=== PATIENT | female | born 2000 | race Caucasian/White ===

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

== ENCOUNTER 2023-05-14 20:24 | Outpatient (CLI) | payer SELFPAY | END 2023-05-14 20:25 | disposition critical access hospital (66) | LOC: EMS 20:24 | DX: T75.1XXA Unspecified effects of drowning and nonfatal submersion, initial encounter (principal); R41.82 Altered mental status, unspecified; F10.90 Alcohol use, unspecified, uncomplicated; F14.90 Cocaine use, unspecified, uncomplicated | CPT/HCPCS: A0425; A0429 ==

== ENCOUNTER 2023-05-14 21:03 | Emergency (ER) | payer SELFPAY ==
[2023-05-14] MEDS ORDERED: LORazepam 2 MG/ML VIAL IVP STA ×2 (21:13→21:43)
[2023-05-14 21:28] LABS: MUDS CUTOFF CONCENTRATIONS CUTOFF CONC BELOW:
[2023-05-14 21:33] LABS: BASOPHILS % (AUTO) 0.4 %; EOSINOPHILS # (AUTO) 0.1 10^3/uL (0.0-0.7); EOSINOPHILS % (AUTO) 1.1 %; HCT - HEMATOCRIT 42.3 % (37.0-47.0); HGB - HEMOGLOBIN 13.8 g/dL (12.0-16.0); LYMPHOCYTES # (AUTO) 2.5 10^3/uL (1.5-3.5); LYMPHOCYTES % (AUTO) 23.1 %; MEAN CORPUSCULAR HEMOGLOBIN 31.9 pg (27.0-31.0); MEAN CORPUSCULAR HGB CONC 32.6 g/dL (32.0-36.0); MEAN CORPUSCULAR VOLUME 97.7 fL (81.0-99.0); MEAN PLATELET VOLUME 9.4 fL (7.9-10.8); MONOCYTES # (AUTO) 0.9 10^3/uL (0.0-1.0); MONOCYTES % (AUTO) 8.4 %; NEUTROPHILS # (AUTO) 7.1 10^3/uL (1.5-6.6); NEUTROPHILS % (AUTO) 66.7 %; PLT - PLATELET COUNT 238 10^3/uL (130-450); RED BLOOD COUNT 4.33 10^6/uL (4.20-5.40); RED CELL DISTRIBUTION WIDTH 12.6 % (12.0-15.0); WHITE BLOOD COUNT 10.6 x10^3/uL (4.8-10.8)
[2023-05-14 21:41] LABS: AMPHETAMINE SCREEN,URINE NEGATIVE (NEGATIVE); BARBITURATE SCREEN,UR NEGATIVE (NEGATIVE); BENZODIAZEPINES SCREEN, URINE NEGATIVE (NEGATIVE); COCAINE SCREEN URINE POSITIVE (NEGATIVE); METHADONE SCREEN, URINE NEGATIVE (NEGATIVE); METHAMPHETAMINES SCREEN, URINE NEGATIVE (NEGATIVE); OPIATE SCREEN, URINE NEGATIVE (NEGATIVE); OXYCODONE SCREEN, URINE NEGATIVE (NEGATIVE); PROPOXYPHENE SCREEN, URINE NEGATIVE (NEGATIVE); THC CANNABINOID SCREEN, URINE NEGATIVE (NEGATIVE); TRICYCLIC ANTIDEPRESSANT,URINE NEGATIVE (NEGATIVE)
[2023-05-14] MEDS ORDERED: SODIUM CHLORIDE 0.9% 1,000 ML IV STA (21:43)
[2023-05-14 21:54] LABS: ALBUMIN 4.2 g/dL (3.2-5.5); ALBUMIN/GLOBULIN RATIO 1.5 (1.0-2.2); BILIRUBIN,TOTAL 0.3 mg/dL (0.2-1.0); CALCIUM 8.6 mg/dL (8.5-10.3); CREATININE 0.6 mg/dL (0.6-1.3); ETOH - ETHANOL 330.6 mg/dL; POTASSIUM 3.9 mmol/L (3.5-4.5)
[2023-05-14 21:58] LABS: HCG,QUALITATIVE BLOOD NEGATIVE
[2023-05-15] MEDS ORDERED: SODIUM CHLORIDE 0.9% 1,000 ML IV STA (01:25)
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
[2023-05-15 08:04] VITALS: BP 106/56
== END 2023-05-15 08:15 | disposition home or self-care (01) ==
LOC: EDUNIT# → ED 21:03
DX: F10.129 Alcohol abuse with intoxication, unspecified (principal); F14.10 Cocaine abuse, uncomplicated; Y90.8 Blood alcohol level of 240 mg/100 ml or more
CPT/HCPCS: 36415; 80053; 80306; 80320; 83690; 84703; 85025; 96361; 96374; 99284; J2060

== ENCOUNTER 2023-09-21 08:00 | Outpatient (CLI) | payer BC ==
[2023-09-21 17:34] LABS: BILIRUBIN,URINE NEGATIVE (NEGATIVE); GLUCOSE, URINE (UA) NEGATIVE (NEGATIVE); KETONES,URINE (UA) NEGATIVE (NEGATIVE); LEUKOCYTE ESTERASE, URINE NEGATIVE (NEGATIVE); NITRITE,URINE NEGATIVE (NEGATIVE); OCCULT BLOOD,URINE NEGATIVE (NEGATIVE); PROTEIN,URINE NEGATIVE (NEGATIVE); UROBILINOGEN,URINE 0.2 (NORMAL) E.U./dL (NORMAL)
[2023-09-21 17:42] LABS: CLARITY,URINE CLEAR (CLEAR)
[2023-09-21 18:28] LABS: BACTERIA,URINE Rare /HPF (None Seen); RBC,URINE 0-5 /HPF (0-5); SQUAMOUS EPITHELIAL CELL,UR FEW Squamous (<= Few); WBC,URINE 0-3 /HPF (0-5)
== END 2023-09-21 23:59 | disposition home or self-care (01) ==
LOC: LAB.WC 08:00
PROVIDERS: ATTEND Nurse Practitioner
DX: Z34.00 Encounter for supervision of normal first pregnancy, unspecified trimester (principal)
CPT/HCPCS: 81001; 87086

== ENCOUNTER 2023-10-18 08:00 | Outpatient (CLI) | payer BC ==
[2023-10-19 15:08] LABS: CHLAMYDIA TRACHOMATIS DNA NEGATIVE (NEGATIVE); NEISSERIA GONORRHOEAE DNA NEGATIVE (NEGATIVE); TRICHOMONAS VAGINALIS DNA NEGATIVE (NEGATIVE)
== END 2023-10-18 08:01 | disposition home or self-care (01) ==
LOC: LAB.WC 08:00
PROVIDERS: ATTEND Obstetrics & Gynecology
DX: Z11.3 Encounter for screening for infections with a predominantly sexual mode of transmission (principal)
CPT/HCPCS: 87491; 87591; 87661

== ENCOUNTER 2023-11-06 12:44 | Outpatient (CLI) | payer BC ==
--- NOTE | 2023-11-06 17:00 | Ultrasound Report ---
PROCEDURE: OB 1st Trimester INDICATIONS: POSITIVE TEST OUTSIDE/PRIOR DATING DATA: Last menstrual period (LMP): 07/18/2023. LMP-based estimated date of delivery (JALYN): 04/23/2024. First dating scan (date and location): 11/06/2023. Estimated date of delivery (JALYN) from first dating scan: 05/20/2024. TECHNIQUE: Real-time scanning was performed of the fetus and maternal pelvic organs with image docum entation. COMPARISON: None FINDINGS: Single intrauterine gestational sac contains a pole and yolk sac. Embryo: [place]-rump length measures 6.3 cm corresponding to a 12 week 4 day gestation. Heart rate: 160 bpm. Other: No perigestational fluid collection. Measurement variability in dating: +/- 4 weeks by LMP, +/- 7 days by mean sac diameter (use before 6 weeks gestation if crown-rump length not able to be measured), +/- 5 days by crown-rump length (6-12 weeks gestation) Maternal organs: 2.3 cm corpus luteum cyst noted in the right IMPRESSION: Single live intrauterine consistent with 12 week 4 day gestation gestation. Reviewed by: Nawaf Galo MD on 11/06/2023 3:59 PM ADONIS Approved by: Nawaf Galo MD on 11/06/2023 3:59 PM [place] Station ID: [id number]
== END 2023-11-06 12:45 | disposition home or self-care (01) ==
LOC: DI 12:44
PROVIDERS: ATTEND Nurse Practitioner
DX: Z34.01 Encounter for supervision of normal first pregnancy, first trimester (principal)

== ENCOUNTER 2023-11-15 13:43 | Outpatient (CLI) | payer BC ==
[2023-11-15 14:00] LABS: BASOPHILS % (AUTO) 0.2 %; EOSINOPHILS # (AUTO) 0.1 10^3/uL (0.0-0.7); EOSINOPHILS % (AUTO) 0.9 %; HCT - HEMATOCRIT 33.7 % (37.0-47.0); HGB - HEMOGLOBIN 11.1 g/dL (12.0-16.0); LYMPHOCYTES # (AUTO) 1.9 10^3/uL (1.5-3.5); LYMPHOCYTES % (AUTO) 15.4 %; MEAN CORPUSCULAR HEMOGLOBIN 30.3 pg (27.0-31.0); MEAN CORPUSCULAR HGB CONC 32.9 g/dL (32.0-36.0); MEAN CORPUSCULAR VOLUME 92.1 fL (81.0-99.0); MEAN PLATELET VOLUME 9.6 fL (7.9-10.8); MONOCYTES # (AUTO) 0.6 10^3/uL (0.0-1.0); MONOCYTES % (AUTO) 4.8 %; NEUTROPHILS # (AUTO) 9.9 10^3/uL (1.5-6.6); NEUTROPHILS % (AUTO) 78.2 %; PLT - PLATELET COUNT 282 10^3/uL (130-450); RED BLOOD COUNT 3.66 10^6/uL (4.20-5.40); RED CELL DISTRIBUTION WIDTH 11.9 % (12.0-15.0); WHITE BLOOD COUNT 12.6 x10^3/uL (4.8-10.8)
[2023-11-16 06:12] LABS: RPR Non Reactive (Non Reactive)
[2023-11-16 07:10] LABS: HBsAG SCREEN Negative (Negative)
[2023-11-16 08:10] LABS: HCV AB Non Reactive (Non Reactive)
[2023-11-16 10:09] LABS: VARICELLA-ZOSTER AB IGG 199 index (Immune >165)
[2023-11-16 19:08] LABS: HIV SCREEN 4TH GENERATION Non Reactive (Non Reactive)
== END 2023-11-15 13:44 | disposition home or self-care (01) ==
LOC: LAB 13:43
PROVIDERS: ATTEND Nurse Practitioner
DX: Z34.00 Encounter for supervision of normal first pregnancy, unspecified trimester (principal); Z36.89 Encounter for other specified antenatal screening
CPT/HCPCS: 36415; 85025; 86592; 86762; 86787; 86803; 86850; 86900; 86901; 87340; 87389

== ENCOUNTER 2024-01-02 14:47 | Outpatient (CLI) | payer BC ==
--- NOTE | 2024-01-02 16:55 | Ultrasound Report ---
PROCEDURE: OB Anatomy Scan INDICATIONS: SUPERVISION OF OUTSIDE/PRIOR DATING DATA: Last menstrual period (LMP): 07/18/2023. LMP-based estimated date of delivery (JALYN): 04/23/2024. First dating scan (date and location): 11/04/2023. Estimated date of delivery (JALYN) from first dating scan: 05/20/2024. The below data below was generated using the ultrasound JALYN of 05/20/2024 TECHNIQUE: Real-time scanning was performed of the fetus, with image documentation and biometric measurements. COMPARISON: OB ultrasound 11/06/2023 FINDINGS: General: A single living intrauterine gestation is present. Presentation: Variable Placenta: Placental position is fundal, without previa. Amniotic fluid index: 15.6 cm, within normal limits for gestational age. Largest pocket 4.5 cm. heart rate: 138 beats per minute. Maternal cervical canal: Closed biometrics: Biparietal diameter: 5.2 cm 21 weeks 6 days 96th percentile Head circumference: 18.6 cm 21 weeks 0 days 80 percentile Abdominal circumference: 15.1 cm 20 weeks 2 days 52nd percentile Femur length: 3.2 cm 20 weeks 0 days 38th percentile Estimated gestational age from initial scan: 20 weeks 1 day Composite gestational age from present scan: 20 weeks 4 days Estimated weight and percentile: 348 g 57th percentile Measurement variability in biometric dating: +/- 10 days from 12-20 weeks gestation, +/- 2 weeks from 20-30 weeks gestation, +/- 3 weeks at 30 weeks gestation or later. Anatomic survey: Neuro: Ventricles are normal at less than 10 mm. Cisterna magna is normal at 3-11 mm. Cerebellum i s normal in size and morphology. Nuchal skin fold: Normal at less than 6 mm between 14 and 20 weeks gestational age. Face: Nose and lips, facial profile are normal. Spine: No evidence for spina bifida. Heart: 4-chambered heart is present, with normal ventricular outflow tracts. Diaphragm: Diaphragm is intact. Stomach: Left-sided stomach is present. Kidneys: No hydronephrosis. Normal is less than 5 mm in 2nd trimester, less than 7 mm in 3rd trimester. Cord: 3 vessel cord has orthotopic insertion. Bladder: Normal in size. Extremities: All 4 extremities are visualized. IMPRESSION: Single live intrauterine with gestational age today of 20 weeks 4 days. Anatomy is within normal limits. Reviewed by: Page Dorman MD on 01/02/2024 4:53 PM PDT Approved by: Page Dorman MD on 01/02/2024 4:53 PM PDT Station ID: [id number]
== END 2024-01-02 14:48 | disposition home or self-care (01) ==
LOC: DI 14:47
PROVIDERS: ATTEND Obstetrics & Gynecology
DX: Z34.02 Encounter for supervision of normal first pregnancy, second trimester (principal)

== ENCOUNTER 2024-01-04 15:19 | Outpatient (CLI) | payer BC ==
[2024-01-04 20:49] LABS: ESTIMATED AVERAGE GLUCOSE 97 mg/dL (70-100)
== END 2024-01-04 15:20 | disposition home or self-care (01) ==
LOC: LAB 15:19
PROVIDERS: ATTEND Obstetrics & Gynecology
DX: Z34.00 Encounter for supervision of normal first pregnancy, unspecified trimester (principal)
CPT/HCPCS: 36415; 81511; 83036

== ENCOUNTER 2024-02-27 10:37 | Outpatient (CLI) | payer MEDICAID ==
[2024-02-27 11:52] LABS: HCT - HEMATOCRIT 32.6 % (37.0-47.0); HGB - HEMOGLOBIN 10.3 g/dL (12.0-16.0); MEAN CORPUSCULAR HEMOGLOBIN 29.4 pg (27.0-31.0); MEAN CORPUSCULAR HGB CONC 31.6 g/dL (32.0-36.0); MEAN CORPUSCULAR VOLUME 93.1 fL (81.0-99.0); RED BLOOD COUNT 3.5 10^6/uL (4.20-5.40); RED CELL DISTRIBUTION WIDTH 12.5 % (12.0-15.0); WHITE BLOOD COUNT 14.3 x10^3/uL (4.8-10.8)
== END 2024-02-27 10:38 | disposition home or self-care (01) ==
LOC: LAB 10:37
PROVIDERS: ATTEND Obstetrics & Gynecology
DX: Z34.00 Encounter for supervision of normal first pregnancy, unspecified trimester (principal); Z36.89 Encounter for other specified antenatal screening
CPT/HCPCS: 36415; 82950; 85027

== ENCOUNTER 2024-03-06 07:56 | Outpatient (CLI) | payer MEDICAID ==
[2024-03-06 08:37] LABS: GTT GLUCOSE,FASTING 81 mg/dL (74-109)
== END 2024-03-06 07:57 | disposition home or self-care (01) ==
LOC: LAB 07:56
PROVIDERS: ATTEND Obstetrics & Gynecology
DX: O99.810 Abnormal glucose complicating pregnancy (principal); O99.019 Anemia complicating pregnancy, unspecified trimester; D50.9 Iron deficiency anemia, unspecified
CPT/HCPCS: 36415; 81599; 82728; 82951; 82952

== ENCOUNTER 2024-04-17 11:54 | Outpatient (CLI) | payer MEDICAID ==
[2024-04-17 12:10] LABS: HCT - HEMATOCRIT 33.8 % (37.0-47.0); HGB - HEMOGLOBIN 11.1 g/dL (12.0-16.0); MEAN CORPUSCULAR HEMOGLOBIN 30.3 pg (27.0-31.0); MEAN CORPUSCULAR HGB CONC 32.8 g/dL (32.0-36.0); MEAN CORPUSCULAR VOLUME 92.3 fL (81.0-99.0); MEAN PLATELET VOLUME 10.5 fL (7.9-10.8); RED BLOOD COUNT 3.66 10^6/uL (4.20-5.40); RED CELL DISTRIBUTION WIDTH 12.9 % (12.0-15.0); WHITE BLOOD COUNT 11.7 x10^3/uL (4.8-10.8)
== END 2024-04-17 11:55 | disposition home or self-care (01) ==
LOC: LAB 11:54
PROVIDERS: ATTEND Obstetrics & Gynecology
DX: O99.019 Anemia complicating pregnancy, unspecified trimester (principal); D50.9 Iron deficiency anemia, unspecified
CPT/HCPCS: 36415; 82728; 85027

== ENCOUNTER 2024-04-24 08:00 | Outpatient (CLI) | payer MEDICAID, OTHER | END 2024-04-24 23:59 | disposition home or self-care (01) | LOC: LAB.WC 08:00 | PROVIDERS: ATTEND Obstetrics & Gynecology | DX: Z36.85 Encounter for antenatal screening for Streptococcus B (principal) | CPT/HCPCS: 87797 ==

== ENCOUNTER 2024-05-02 21:05 | Outpatient (CLI) | payer MEDICAID ==
--- NOTE | 2024-05-03 15:35 | Ultrasound Report ---
PROCEDURE: OB Follow up INDICATIONS: EXCESSIVE GROWTH OUTSIDE/PRIOR DATING DATA: Last menstrual period (LMP): 07/18/2023. LMP-based estimated date of delivery (JALYN): 04/23/2024. First dating scan (date and location): 11/06/2023. Estimated date of delivery (JALYN) from first dating scan: 05/20/2024. The below data below was generated using the ultrasound JALYN of 05/20/2024 TECHNIQUE: Real-time scanning was performed of the fetus, with image documentation and biometric measurements. Endovaginal scanning: Not performed. COMPARISON: None. FINDINGS: General: A single living intrauterine gestation is present. Presentation: Vertex Placenta: Placental position is fundal, without previa. Amniotic fluid index: 21.0 cm, within normal limits for gestational age. heart rate: 148 beats per minute. Maternal cervical canal not visualized. biometrics: Biparietal diameter: 9.2 cm, 37 weeks 3 days, 69.6 percentile Head circumference: 35.68 cm, 41 weeks 6 days, 98.4 percentile Abdominal circumference: 37.27 cm, 41 weeks 1 day, greater than 99 percentile Femur length: 7.19 cm, 36 weeks 6 days, 34.5 percentile Estimated gestational age from initial scan: 37 weeks 3 days Composite gestational age from present scan: 39 weeks 2 days Estimated weight and percentile: 3931 g, 98 percentile. Measurement variability in biometric dating: +/- 10 days from 12-20 weeks gestation, +/- 2 weeks from 20-30 weeks gestation, +/- 3 weeks at 30 weeks gestation or more. Other: Not applicable. IMPRESSION: Single living intrauterine at 37 weeks 3 days, JALYN of 05/20/2024. Estimated weight of 3931 g, 98th percentile. Reviewed by: Oren Pedraza MD on 05/03/2024 2:33 PM ROSI Approved by: Oren Pedraza MD on 05/03/2024 2:33 PM ROSI Station ID: [id number]
== END 2024-05-02 21:06 | disposition home or self-care (01) ==
LOC: DI 21:05
PROVIDERS: ATTEND Obstetrics & Gynecology
DX: O36.63X0 Maternal care for excessive fetal growth, third trimester, not applicable or unspecified (principal); Z3A.39 39 weeks gestation of pregnancy

== ENCOUNTER 2024-05-09 06:18 | Inpatient (IN) | payer MEDICAID ==
[2024-05-09] MEDS ORDERED: fentaNYL 100 MCG/2 ML VIAL IVP PRN (07:41)
[2024-05-09] MEDS ORDERED: TERBUTALINE 1 MG/ML VIAL SUBQ PRN (07:41)
[2024-05-09] MEDS ORDERED: TRANEXAMIC ACID IN NACL 1,000 MG/100 ML BAG IV PRN (07:41)
[2024-05-09] MEDS ORDERED: miSOPROStoL 200 MCG TABLET BC PRN (07:41)
[2024-05-09] MEDS ORDERED: CARBOPROST TROMETHAMINE 250 MCG/ML VIAL IM PRN (07:41)
[2024-05-09] MEDS ORDERED: LACTATED RINGERS 1,000 ML IV PRN (07:41)
[2024-05-09] MEDS ORDERED: hydrALAZINE INJ 20 MG/ML VIAL IVP PRN ×2 (07:41)
[2024-05-09] MEDS ORDERED: miSOPROStoL 200 MCG TABLET PR PRN (07:41)
[2024-05-09] MEDS ORDERED: SODIUM CHLORIDE FLUSH 0.9% 10 ML SYRINGE IVP PRN (07:41)
[2024-05-09] MEDS ORDERED: LABETALOL 20 MG/4 ML SYRINGE IVP PRN ×3 (07:41)
[2024-05-09] MEDS ORDERED: OXYTOCIN 10 UNIT/ML VIAL IM PRN (07:41)
[2024-05-09] MEDS ORDERED: NIFEdipine 10 MG CAPSULE PO PRN (07:41)
[2024-05-09] MEDS ORDERED: METHYLERGONOVINE 0.2 MG/ML VIAL IM PRN (07:41)
--- NOTE | 2024-05-09 07:57 | HISTORY & PHYSICAL EXAMINATION ---
Admit History - Visit Reason Visit Reason: Contractions, Membranes rupture - : 1 Care: positive: [facility] Risk/History: positive: Other (Failed 1h GTT 154, passed 3h EFW 4200g) Smoking Status: Never smoker - Mother's Labs Mother's Blood Type: positive: O Mother's RH: positive: Positive GBS: positive: Group B Step Negative Rubella Status: positive: Non-immune - Other Maternal History Other Maternal History: Med: Dental infection 10/2023 Surg: [place] teeth 10/2023 Fam: HTN, anxiety, depression, DM Social: Denies LUCAS, former smoker - HPI Diagnosis/Indication for NST: Other (labor/rupture membranes) Vital Signs Temperature 97.9 F 05/09/24 06:32 Heart Rate 88 05/09/24 06:32 Respiratory Rate 20 05/09/24 06:32 Blood Pressure 130/90 H 05/09/24 06:32 O2 Saturation 97 05/09/24 06:32 Temperature 97.9 F 05/09/24 06:32 Heart Rate 88 05/09/24 06:32 Respiratory Rate 20 05/09/24 06:32 Blood Pressure 138/90 H 05/09/24 06:32 O2 Saturation 97 05/09/24 06:32 If not protocol: Oxygen Flow, liters/minute - NST Procedure EFM: 120s, moderate variability, positive accelerations, no decelerations [place]: q6 Cat 1/NST reactive Performed and read 05/10/24 Admitted to [facility] for labor/membrane rupture Meds/Allgy - Home Medications Home Medications: Ambulatory Orders Medication Instructions Recorded Confirmed Nitrofurantoin Monohyd/M-Cryst 1 tab PO BID 5 Days capsule 05/16/18 [Macrobid 100 mg Capsule] Phenazopyridine HCl [Pyridium] 200 mg PO TID #6 tablet 05/16/18 - Allergies Allergies/Adverse Reactions: Allergies Allergy/AdvReac Type Severity Reaction Status Date / Time No Known Drug Allergies Allergy Verified 05/14/23 21:07 Review of Systems - All Other Systems All Other Systems: reports: Reviewed and negative Physical - Abdominal Exam Vital Signs: Temp Pulse Resp BP Pulse Ox O2 Flow Rate 97.9 F 88 20 138/90 H 97 05/09/24 06:32 05/09/24 06:32 05/09/24 06:32 05/09/24 06:32 05/09/24 06:32 Contraction Frequency (min/apart): 6 Contraction Intensity: positive: Moderate Uterine Resting Tone: positive: Soft - Monitoring Heart Rate Baseline: 120 Strip Review: positive: Category I - Presentation Presentation: positive: Vertex (EFW 4200g, placenta fundal) - Vaginal Exam Membranes: positive: Membranes ruptured (Grossly, nitrazine positive) Dilation (in cm): 5 Effacement (%): 80 Station: positive: -2 Cervical Position: positive: Midposition Plan for Labor - Plan For Labor I expect patient to be DC'd or transferred within 96 hours.: Yes Plan for Labor: 24yo at 38.3w by 12w US admitted in labor, SROM 0530, clear - Admit - Diastolic BP in 90s in triage, preeclampsia labs sent - Glucose intolerance, GTT 154, passed 3h, currently with 98% EFW, 4200g. - Anticipate , monitor closely for progress and descent
[2024-05-09] MEDS ORDERED: SODIUM CHLORIDE FLUSH 0.9% 10 ML SYRINGE IVP SCH (08:00)
[2024-05-09] MEDS ORDERED: LACTATED RINGERS 1,000 ML IV SCH ×3 (08:00→14:00)
[2024-05-09 08:18] LABS: BASOPHILS % (AUTO) 0.2 %; EOSINOPHILS # (AUTO) 0.1 10^3/uL (0.0-0.7); EOSINOPHILS % (AUTO) 0.6 %; HCT - HEMATOCRIT 34.4 % (37.0-47.0); HGB - HEMOGLOBIN 11.1 g/dL (12.0-16.0); LYMPHOCYTES # (AUTO) 2.8 10^3/uL (1.5-3.5); LYMPHOCYTES % (AUTO) 22.6 %; MEAN CORPUSCULAR HEMOGLOBIN 29.3 pg (27.0-31.0); MEAN CORPUSCULAR HGB CONC 32.3 g/dL (32.0-36.0); MEAN CORPUSCULAR VOLUME 90.8 fL (81.0-99.0); MEAN PLATELET VOLUME 11.2 fL (7.9-10.8); MONOCYTES # (AUTO) 0.8 10^3/uL (0.0-1.0); MONOCYTES % (AUTO) 6.6 %; NEUTROPHILS # (AUTO) 8.5 10^3/uL (1.5-6.6); NEUTROPHILS % (AUTO) 69.5 %; PLT - PLATELET COUNT 209 10^3/uL (130-450); RED BLOOD COUNT 3.79 10^6/uL (4.20-5.40); RED CELL DISTRIBUTION WIDTH 12.9 % (12.0-15.0); WHITE BLOOD COUNT 12.2 x10^3/uL (4.8-10.8)
[2024-05-09 08:57] LABS: ALBUMIN 3.5 g/dL (3.2-5.5); ALBUMIN/GLOBULIN RATIO 1.2 (1.0-2.2); BILIRUBIN,TOTAL 0.3 mg/dL (0.2-1.0); CALCIUM 9.5 mg/dL (8.5-10.3); CREATININE 0.7 mg/dL (0.6-1.3); POTASSIUM 3.4 mmol/L (3.5-4.5); TOTAL PROTEIN 6.5 g/dL (6.4-8.9)
[2024-05-09 09:33] LABS: CREATININE,URINE 143.3 mg/dL; PROTEIN/CREATININE RATIO,URINE 0.4 (<=0.2)
[2024-05-09] MEDS: CALCIUM CARBONATE CHEW 500 MG TABLET PO SCH (11:34)
--- NOTE | 2024-05-09 12:22 | PHARMACY PROGRESS NOTE ---
- Best Possible Medication History Admit Date and Time: 05/09/24 0741 Processed by: Pharmacy Medications reviewed in ED?: No Medication History completed: In progress Patient Interview: Pt unable to participate Secondary Source(s): Pharmacy records (No prescription medications have been recently filled), Insurance records As the person ultimately responsible for medication therapy, providers are able to order a medication from an existing home medication list in [facility] via the "Reconcile Routine" prior to Confirmation of that medication by clinical support associate. Such practice is discouraged except when the physician, in their clinical judgment, deems that a medical need exists for a medication without regard to previous use.
[2024-05-09] MEDS: lidocaine 1% 20 ML MDV ID PRN (13:08)
[2024-05-09] MEDS: OXYTOCIN/SODIUM CHLORIDE 500 ML IV PRN (13:09)
[2024-05-09] MEDS ORDERED: WITCH HAZEL/GLYCERIN 1 PAD TOP PRN (13:33)
[2024-05-09] MEDS ORDERED: ACETAMINOPHEN 325 MG TABLET PO PRN (13:33)
[2024-05-09] MEDS ORDERED: ONDANSETRON ODT 4 MG TABLET TL PRN (13:33)
[2024-05-09] MEDS ORDERED: oxyCODONE 5 MG TABLET PO PRN (13:35)
--- NOTE | 2024-05-09 16:44 | DELIVERY NOTE ---
Delivery Note - Infant Delivery Method Infant Delivery Method: positive: Spontaneous vaginal delivery - Presentation Presentation: positive: Vertex, MICHELET - left occiput anterior - Nuchal Cord Nuchal Cord: positive: None - Anesthetic Anesthetic Type: - Amniotic Fluid Description Amniotic Fluid Description: positive: Clear - Episiotomy Type Episiotomy Type: positive: None - Laceration Laceration: positive: 2nd degree, Perineal - Suture Suture Type: positive: Vicryl Suture Size: positive: 3-0 - Delivery Outcome Delivery Outcome: positive: Livebirth - Estimated Blood Loss Estimated Blood Loss (in cc): 300 - Post Delivery Events Post Delivery Events: positive: No post delivery events - Delivery Comments (Free Text/Narrative) Delivery Comments (Free Text/Narrative): Procedure in detail: The anterior shoulder delivered easily with maternal effort and gentle downward pressure followed by the remainder of the body. The infant was placed on the mother's abdomen. After 60 sec the cord was clamped times two and cut. Cord blood collected. Pitocin was started. The placenta was delivered intact. Good uterine tone noted. The 2nd degree perineal laceration was repaired in the standard fashion using 3-0 Vicryl after infiltration with local anesthetic. Perineal hemostasis noted at completion and uterus firm. Instrument, sponge, needle counts correct. Jovany Bates MD
[2024-05-10 08:19] VITALS: O2SAT 98
[2024-05-10 08:22] LABS: THYROID STIMULATING HORMONE 3.08 uIU/mL (0.34-5.60)
--- NOTE | 2024-05-10 11:11 | PROVIDER PROGRESS NOTE ---
Subjective - Subjective Subjective: Subjective Patient reports she is doing well. Lochia appropriate. Denies heavy bleeding. Ambulating. Pelvic and abdominal pain well-controlled. Tolerating oral intake. Diet: Regular. Voiding without difficulty. Passing flatus. Denies BM. Patient is bonding with baby in room Breast feeding going well. Denies feeling lightheaded, dizzy or excessively fatigued. Objective General: Alert, oriented, no apparent distress. Cardiovascular: Regular rate. Regular rhythm. Lungs: No increased work of breathing. Abdomen: Uterus firm. Below umbilicus. No guarding or rebound. Extremities: No pain on palpation. No cords palpated. Distal pulses intact. Assessment and Plan day 1. -Routine care -Anticipate discharge tomorrow Preeclampsia without severe features Blood pressure and labs normal. Will continue to monitor. Elevated TSH -Normal today. Objective - Vital Signs/Intake & Output Vital Signs: Vital Signs x48h Temp Pulse Resp BP Pulse Ox 05/10/24 08:05 97.9 F 84 16 128/79 98 05/10/24 05:31 98.1 F 81 18 127/76 97 Intake & Output: Intake & Output 05/07/24 05/08/24 05/09/24 05/10/24 23:59 23:59 23:59 23:59 Output Total 1300 Balance -1300 - Lab Results Fish Bones: 05/09/24 07:50 05/09/24 07:50 Other Labs: Lab Results x24hrs 05/10/24 Range/Units 07:44 TSH 3.08 (0.34-5.60) uIU/mL Free T4 Direct 0.51 L (0.58-1.64) ng/dL
[2024-05-10] MEDS: IBUPROFEN 600 MG TABLET PO SCH (17:04)
[2024-05-11] MEDS ORDERED: MEASLES,MUMPS & RUBELLA VACC 0.5 ML VIAL SUBQ ONE (07:39)
--- NOTE | 2024-05-11 07:47 | Discharge Plan ---
Discharge Plan Problem Reviewed?: Yes Disposition: Home, Self Care Condition: Good Diet: Regular Shower Restrictions: No Instruction Topics: Depression , Vaginal After No Smoking: If you smoke, Please STOP! Call for help. Follow-up with: Ana Graves MD [Primary Care Provider] -
--- NOTE | 2024-05-11 07:49 | DISCHARGE SUMMARY ---
Discharge Summary Admit Date: 05/09/24 Discharge Date: 05/11/24 Discharging Provider: Rafal Goldstein MD Code Status: Attempt Resuscitation Condition at Discharge: Good Discharge Disposition: 01 Home, Self Care - HPI History of Present Illness: Subjective Patient reports she is doing well. Lochia appropriate. Denies heavy bleeding. Ambulating. Pelvic and abdominal pain well-controlled. Tolerating oral intake. Diet: Regular. Voiding without difficulty. Passing flatus. Denies BM. Patient is bonding with baby in room Breast feeding going well. Denies feeling lightheaded, dizzy or excessively fatigued. Objective General: Alert, oriented, no apparent distress. Cardiovascular: Regular rate. Regular rhythm. Lungs: No increased work of breathing. Abdomen: Uterus firm. Below umbilicus. No guarding or rebound. Extremities: No pain on palpation. No cords palpated. Distal pulses intact. To receive MMR prior to discharge. - HOSPITAL COURSE Hospital Course: Patient presented at 38 weeks gestation in labor with spontaneous rupture membranes. She was 5 cm and grossly ruptured. She required no augmentation during delivery. Delivery was uncomplicated and had an uneventful course. She was discharged with her on day 2. - ALLERGIES Allergies/Adverse Reactions: Allergies Allergy/AdvReac Type Severity Reaction Status Date / Time No Known Drug Allergies Allergy Verified 05/14/23 21:07 - MEDICATIONS Home Medications: Ambulatory Orders Medication Instructions Recorded Confirmed Calcium Carbonate [Tums (Calcium 500 mg PO Q6H PRN 05/09/24 05/09/24 Carbonate 500mg)] 147/Iron/Folic Acid 1 tab PO DAILY 05/09/24 05/09/24 [Ziphex Tablet] - LABS Result Diagrams: 05/09/24 07:50 05/09/24 07:50 - FOLLOW UP Follow Up: With [facility] care in 1 to 2 weeks. - TIME SPENT Time Spent in Discharge (Minutes): 20
[2024-05-11 09:29] VITALS: BP 129/75
--- NOTE | 2024-05-11 16:37 | Labor Flowsheet ---
Labor Flowsheet Datetime Report Generated by CPN: 05/11/2024 16:37 Datetime: 05/11/2024 08:48 VITAL SIGNS NBP Sys/Scarlet/Mean (mmHg): 129 : 75 : 89 Pulse: 74 Datetime: 05/09/2024 15:00 Stage of : Recovery Datetime: 05/09/2024 13:15 PAIN Pain Scale: 4 Datetime: 05/09/2024 13:14 Membranes Ruptured Date/Time: 05/09/2024 05:00 Amniotic Fluid Color: Clear Amniotic Fluid Amount: Moderate Amniotic Fluid Odor: None Datetime: 05/09/2024 12:57 PATIENT CARE Patient Care Comments: Delivery of liveborn baby boy. This RN remained at bedside, reviewing FHT st rip throughout entire maternal pushing effort. Datetime: 05/09/2024 12:45 Pattern: Normal: <= 5 Contractions in 10 Minutes FHR Baseline Rate : 125 Variability: Moderate 6-25 bpm Accelerations: 15X15 Decelerations: None Datetime: 05/09/2024 12:30 Frequency (min): 1.5-3.5 ASSESSMENT A Monitor Mode: External US Datetime: 05/09/2024 11:45 VAGINAL EXAM Dilatation (cm): 10.0 Effacement (%): 100 Station: 2 Exam by: Dr. Paulo COMMUNICATION Communication: RN Reviewed Strip Datetime: 05/09/2024 11:35 LaborFlag: Labor Datetime: 05/09/2024 11:30 Duration (sec): 80-120 Category: Category I Datetime: 05/09/2024 10:59 Membranes Rupture Method: Spontaneous Vaginal Bleeding: Normal Show Membrane Comments: Forebag AROMed Datetime: 05/09/2024 10:13 Communication Comments: Dr. Bates updated on SVE. MD states she will be over shortly Datetime: 05/09/2024 10:11 Cervix, Consistency: Soft Cervix, Position: Anterior Vaginal Exam Comments: Patient requested SVE. Consent obtained prior to SVE. Forebag noted Datetime: 05/09/2024 09:30 UTERINE ACTIVITY Monitor Mode: External Quality: Moderate Resting Tone (Palpate): Relaxed Datetime: 05/09/2024 07:34 Temperature (C): 36.9
== END 2024-05-11 15:45 | disposition home or self-care (01) | DRG 807 ==
LOC: WFO 06:18 → FBP 06:19 → WFO 07:40 → FBP 07:41
PROVIDERS: ADMIT Obstetrics & Gynecology; ATTEND Obstetrics & Gynecology
PROC: 10E0XZZ Delivery of Products of Conception, External Approach (ICD-10-PCS; principal; 2024-05-09)
PROC: 0KQM0ZZ Repair Perineum Muscle, Open Approach (ICD-10-PCS; 2024-05-09)
DX: O70.1 Second degree perineal laceration during delivery (principal); Z37.0 Single live birth; Z3A.38 38 weeks gestation of pregnancy
CPT/HCPCS: 36415; 59409; 80053; 82570; 84156; 84439; 84443; 85025; 86850; 86900; 86901; 99215; A9270